=== PATIENT | female | born 1985 | race Two or more races ===

== ENCOUNTER 2018-06-04 14:37 | Emergency (ER) | payer OTHER ==
[~2018-06-04] VITALS: Ht 165.1 cm; Wt 74.8 kg
[2018-06-04 14:50] VITALS: BP 104/66
[2018-06-04] MEDS ORDERED: BENADRYL25 MG ORAL (15:09)
[2018-06-04] MEDS ORDERED: PREDNISONE20 MG ORAL (15:09)
--- NOTE | 2018-06-04 15:09 | Emergency Room Report ---
History of Present Illness General Chief Complaint: Skin Rash/Abscess Source: Patient Present Illness HPI 32 female patient presents ER complaining of bee sting on the left side of her face status post 2 days ago. Patient reports that she was stung on Tuesday, states that she woke up this morning with swelling noted on her face. Reports that the stinger was removed following being stung. Denies fever, chest pain, shortness breath, vomiting, tongue swelling. Reports she has been some the past and does not believe she is alert. Denies taking any medications or using compresses to alleviate symptoms. Allergies: Coded Allergies: No Known Allergies (Unverified , 06/04/18) Patient History Past Medical History: see triage record Last Menstrual Period: last week Now: No Reviewed Nursing Documentation: PMH: Agreed; PSxH: Agreed Nursing Documentation-PMH Past Medical History: No Stated History Review of Systems All Other Systems: negative except mentioned in HPI Physical Exam Vital Signs Date Time Temp Pulse Resp B/P (MAP) Pulse Ox O2 Delivery O2 Flow Rate FiO2 06/04/18 14:40 98.3 62 18 104/66 98 Room Air 98.2 Sp02 EP Interpretation: reviewed, normal General Appearance: well appearing, no apparent distress, alert, GCS 15, non- toxic Head: normocephalic, atraumatic Eyes: bilateral eye normal inspection, bilateral eye PERRL ENT: hearing grossly normal, normal pharynx, no angioedema, normal voice, uvula midline, moist mucus membranes, other - no gum TTP, no swelling in oropharynx or gumline Neck: full range of motion Respiratory: lungs clear, normal breath sounds, no rhonchi, no respiratory distress, no accessory muscle use, no wheezing, speaking full sentences Cardiovascular #1: regular rate, rhythm, no edema Musculoskeletal: back normal, digits/nails normal, gait/station normal, normal range of motion, non-tender Neurologic: alert, oriented x3, responsive, motor strength/tone normal, sensory intact Skin: other - skin over left facial cheek: Mild swelling noted over cheek, no erythema or edema, no stinger noted, no bleeding or drainage, no puncture wound Medical Decision Making PA Attestation Dr. Palomino is my supervising Physician whom patient management has been discussed with. Diagnostic Impression: Primary Impression: Bee sting ER Course Pt. presents to the ED c/o bee sting. Ddx considered but are not limited to atopic dermatitis, bug bite, urticaria, allergic reaction, bee sting. Vital signs: are WNL, pt. is afebrile ER COURSE: patient has history of bee sting to left side of face. Swelling and edema noted over the left cheek. no stinger visualized that requires removal. Patient reports initially no swelling. Due to delayed swelling reaction, will provide patient with prednisone medication for swelling symptoms. Informed patient to take Benadryl for itching symptoms. Instructed patient to take Tylenol over-the -counter if any pain symptoms arise. Apply cool compresses to the affected area. Return to ER for new or worsening symptoms including but not limited to tongue swelling, shortness of breath, chest pain, intractable vomiting, red streaking. DISCHARGE: -Rx given for Benadryl for pruritis. SE drowsiness, do not take prior to drinking, driving, operating heavy machinery. -Rx given for prednisone At this time pt. is stable for d/c to home. Patient resting comfortably, in no acute distress, nontoxic appearing. Care plan and follow up instructions have been discussed with the patient prior to discharge. Patient provided with printed patient care instructions, and any necessary prescriptions. Patient instructed to follow-up with primary care provider in 3 - 5 days. Patient questions asked and answered. Patient reports understanding and agreement to treatment plan. ER precautions given. Patient instructed to return to ER immediately for any new or worsening of symptoms including but not limited to increasing SOB, persistent fever. - Please note that this Emergency Department Report was dictated using [employer] support assistant technology software, occasionally this can lead to erroneous entry secondary to interpretation by the dictation equipment. Last Vital Signs Date Time Temp Pulse Resp B/P (MAP) Pulse Ox O2 Delivery O2 Flow Rate FiO2 06/04/18 14:50 98.2 18 104/66 98 Room Air 98.2 06/04/18 14:40 62 Disposition: HOME, SELF-CARE Condition: Stable Scripts Diphenhydramine Hcl* (BENADRYL*) 25 Mg Capsule 25 MG ORAL DAILY PRN for Itching, #30 CAP Prov: Jose Raul Moody 06/04/18 Prednisone* (PREDNISONE*) 20 Mg Tablet 20 MG ORAL DAILY, #4 TAB 0 Refills Prov: Jose Raul Moody 06/04/18 Patient Instructions: Bee, Wasp, or Hornet Sting Additional Instructions: Followup with primary care provider in 3 -5 days. Follow-up with dermatology as needed. Take medications as directed. SE Benadryl drowsiness, do not take prior to drinking, driving, or operating heavy machinery. Apply cool compresses to affected area. Patient questions asked and answered. ER precautions given, patient instructed to return to ER immediately for any new or worsening of symptoms including but not limited to intractable vomiting, fever, chest pain, shortness of breath, red streaking. Jose Raul Moody Jun 04, 2018 15:09
[2018-06-04 15:20] VITALS: BP 104/66
== END 2018-06-04 15:20 | disposition home or self-care (01) ==
LOC: EMR 15:00
DX: T63.441A Toxic effect of venom of bees, accidental (unintentional), initial encounter (principal); R60.0 Localized edema; Y92.9 Unspecified place or not applicable
CPT/HCPCS: 99283